=== PATIENT | female | born 1985 | race Caucasian/White ===

== ENCOUNTER 2019-07-03 21:12 | Emergency (ER) | payer SELFPAY ==
[2019-07-03 21:27] VITALS: BP 150/87; PULSE 98; RESP 16; TEMP 36.4; O2SAT 97
--- NOTE | 2019-07-03 21:49 | ED.GENADUL_ITS ---
Discharge Plan Disposition Patient Disposition: HOME Discharge Details Chief Complaint: Headache Clinical Impression: Headache Primary Care Provider: Callie Mcgovern ED Provider: Reno Rosenberg Home Meds and New Rx's Prescriptions: No Action No Known Home Meds RF: 0 Discharge Instructions Instructions: Migraine Headache (ED) Additional Instructions: Your blood work and CAT scan in the emergency department today were unremarkable. I suspect your symptoms are that of migraine at this time. It is very important to monitor your symptoms and should you develop any worsening headache, severe sudden onset symptoms, vomiting or fever he should be evaluated immediately. Start taking ibuprofen 600 mg along with Tylenol 500 mg every 8 hours. You may also try Excedrin Migraine for [id number] relief. Contact your primary care provider should your symptoms persist into the latter part of the week. Call should you have any concerns Referrals: Callie Mcgovern [Primary Care Provider] - 3 days Medical Decision Making This is a nontoxic-appearing 34-year-old female presenting to the emergency department with daily recurring left-sided headache and neck pain. No concerning features on exam. Her vitals are stable. Labs demonstrate normal CBC, chemistry panel, and sed rate . CAT scan of her head today unremarkable. Her headache is much improved status post IV fluids and Toradol 50 mg IV push. She has a photophobia characteristic with her headache. I suspect that this is most likely the onset of the new daily occurring migraine. Discussing with her home therapy it seems as though she is been underdosing her Tylenol and Motrin regimen. We discussed supportive measures going forward. We also discussed following up with her primary care provider should her headache symptoms persist despite maximum outpatient therapy. We did discuss worrisome features for emergent ER evaluation which include thunderclap headache, fevers, neck stiffness and pain, new rash or vomiting. At this time I do not suspect meningitis or subarachnoid hemorrhage based on the characteristics of her symptoms. HPI General Date/Time Provider Initiated Documentation: 07/03/19 21:22 . HPI Narrative: Patient is a 34-year-old female presenting to the emergency department with a left-sided headache x6 days. She states that she has a history for frequent headaches usually occurring 1 to 2 weeks prior to her menses. Her headache today is different than her typical headache stating that it is very focal and nonresponsive to treatment. She has some light sensitivity associated with a headache. She admits to some mild nausea. She states that her headache radiates into the left lateral aspect of her neck. She denies any neck stiffness. No fevers or chills. She denies any rashes. Headache came on gradually and has been constant. She denies any thunderclap headache. No vomiting. She is been taking Tylenol and Motrin with relief however her headache rebound roughly 4 to 6 hours afterwards. She denies any trauma. Related Data Home Medications Medication Instructions Recorded Confirmed Unknown [No Known Home Meds] 07/03/19 07/03/19 Allergies Allergy/AdvReac Type Severity Reaction Status Date / Time Penicillins Allergy Severe Hives Unverified 07/03/19 21:32 sulfamethoxazole Allergy Severe Hives Unverified 07/03/19 21:32 [From Bactrim] General Stated Complaint: Headache DONNA: 4 Review of Systems Constitutional Denies chills, Denies fatigue, Denies fever(s), Denies frequent falls, Denies headache(s), Denies lethargy and Denies weakness Eyes Denies blurry vision, Denies loss of vision and Reports photophobia ENT Denies vertigo, Denies dizziness, Denies headache(s), Denies nasal trauma, Denies neck mass, Reports neck pain and Denies nose pain Cardiovascular Denies chest pain, Denies syncope, Denies rapid heart rate, Denies edema, Denies dyspnea, Denies dyspnea on exertion and Denies orthopnea Respiratory Denies cough, Denies dyspnea, Denies dyspnea on exertion and Denies wheezing Gastrointestinal Denies abdominal pain, Denies cramping, Denies diarrhea, Reports nausea and Denies vomiting Genitourinary Denies dysuria Musculoskeletal Denies myalgias, Reports neck pain, Denies numbness and Denies tingling Integumentary/Breasts Denies rash Neurologic Denies abnormal speech, Denies confusion, Denies vertigo, Denies dizziness, Denies syncope, Denies frequent falls, Denies headache(s), Denies lack of coordination, Denies focal weakness, Denies loss of vision, Denies memory loss, Denies numbness, Denies radicular pain, Denies convulsions, Denies seizure-like activity, Denies sensory deficit, Denies tingling, Denies paresthesias and Denies weakness Psychiatric Denies confusion and Denies memory loss Endocrine Denies fatigue Allergic/Immunologic Denies wheezing [facility] Social History Smoking/Tobacco Use Status: Never Drug use: Never Substance use type: does not use Do you feel safe at home: Yes Do you feel safe in your relationship?: Yes Exam Const General: cooperative, healthy appearing, comfortable and no acute distress Orientation: alert, awake and oriented x3 HENMT Head: abnormal to inspection, skull fracture palpable, not normocephalic and signs of trauma Ears: hearing grossly normal bilaterally General nose exam: external nose normal Face and sinus: normal facial exam and sinuses nontender Mouth: oral mucosae normal Teeth and gingiva: dentition normal Throat: posterior oropharynx normal Eyes General: appearance normal, both eyes and all related structures Pupils: PERRL EOM: EOM intact bilaterally Neck Neck: normal visual inspection, full ROM, no lymphadenopathy and no meningeal signs Lymphatic: no lymphadenopathy noted Chest Chest: normal inspection of the chest Breast inspection: normal inspection of the breasts Resp Effort & Inspection: normal respiratory effort Auscultation: clear to auscultation bilaterally Cardio Rate: regular rate Rhythm: regular rhythm Heart Sounds: S1 normal and S2 normal Pulses: normal peripheral pulses GI Inspection: normal to inspection Palpation: soft Back/Spine/Pelvis Back: no CVA tenderness Thoracic/Lumbar Spine: thoracic and lumbar spine normal to inspection Skin General skin exam: no rashes or lesions noted Neuro General: alert, awake and oriented x3 Cranial Nerves: CN's II-XI intact bilaterally Cognition: normal cognition Speech: speech normal Gait: normal gait Motor: muscle tone normal throughout Sensory Exam: no sensory deficits noted Extrem General: normal to inspection Course Vital Signs Temperature 36.4 C L 07/03/19 21:27 Pulse 98 H 07/03/19 21:27 Respiratory Rate 16 07/03/19 21:27 Blood Pressure 150/87 H 07/03/19 21:27 Pulse Oximetry 97 07/03/19 21:27 Temperature 36.4 C L 07/03/19 21:27 Temperature Source Skin 07/03/19 21:27 Pulse 98 H 07/03/19 21:27 Respiratory Rate 16 07/03/19 21:27 Respiratory Effort 07/03/19 21:32 Blood Pressure 150/87 H 07/03/19 21:27 Blood Pressure Position Sitting 07/03/19 21:27 Pulse Oximetry 97 07/03/19 21:27 Oxygen Delivery Method Room Air 07/03/19 21:27 Oxygen Flow Rate 0 07/03/19 21:27 Pain Level 5 07/03/19 21:32
[2019-07-03 22:03] LABS: Abs Immature Grans 0.02 k/cumm (0.0-0.09); Absolute Basophil Count 0.05 k/cumm (0.0-0.2); Absolute Eosinophil Count 0.12 k/cumm (0.0-0.7); Absolute Lymphocyte Count 1.53 k/cumm (1.2-3.4); Absolute Monocyte Count 0.39 k/cumm (0.11-0.7); Absolute Neutrophil Count 4.45 k/cumm (1.2-6.7); Basophils % 0.8; Eosinophils % 1.8; HCT 41.3 % (36.0-46.0); HGB 14.1 g/dL (12.0-15.5); Immature Grans % 0.3; Lymphocytes % 23.3; Mean Corp. HGB Concentration 34.1 g/dL (32.0-36.0); Mean Corpuscular Hemoglobin 28.1 pg (27.0-33.0); Mean Corpuscular Volume 82.3 fL (80-95); Mean Platelet Volume 8.5 fL (8.0-11.0); Monocytes % 5.9; Neutrophils % 67.9; Platelet Count 336 x1000/uL (130-400); RBC 5.02 m/cumm (4.00-5.20); RBC Distribution Width 12.8 % (11.7-14.6); White Blood Cell Count 6.56 k/cumm (4.4-10.8)
--- NOTE | 2019-07-03 22:15 | DI.CT_ITS ---
SYMPTOM/DIAGNOSIS: RT SIDED HEADACHE NONCONTRAST HEAD CT: No intracranial hemorrhage, mass or infarct is seen. The ventricles are normal in size. The visualized portions of the orbits, sinuses and mastoid air cells are unremarkable. IMPRESSION: Negative head CT.
[2019-07-03] MEDS: Normal Saline 1,000 ML 1000 ML IV (22:25)
[2019-07-03] MEDS: Ketorolac 30 MG/ML VIAL 15 MG IVP (22:26)
[2019-07-03] MEDS: Ondansetron 4 MG/2 ML VIAL IVP (22:27)
--- NOTE | 2019-07-03 22:34 | DI.VRAD_ITS ---
EXAM: CT Head Without Contrast EXAM DATE/TIME: 07/03/2019 9:46 PM CLINICAL HISTORY: 34 years old, female; Other: Right sided headache x 6 days TECHNIQUE: Imaging protocol: Computed tomography of the head without contrast. Radiation optimization: All CT scans at this facility use at least one of these dose optimization techniques: automated exposure control; mA and/or kV adjustment per patient size (includes targeted exams where dose is matched to clinical indication); or iterative reconstruction. COMPARISON: No relevant prior studies available. FINDINGS: Brain: Typical for age. No hemorrhage. No evidence of acute infarct. No mass. Ventricles: No ventriculomegaly. Bones/joints: Unremarkable. Sinuses: No sinus fluid. Mastoid air cells: Unremarkable. Soft tissues: Unremarkable. IMPRESSION: No acute intracranial abnormality. Dictated and Authenticated by: Damian Castellon MD. Ordering:MIKHAIL Bojorquez MD
[2019-07-03 22:39] LABS: Magnesium 1.8 mg/dL (1.8-2.4)
[2019-07-03 22:46] LABS: ALT 51 U/L (14-59); AST 30 U/L (15-37); Albumin 4.2 g/dL (3.4-5.0); Alkaline Phosphatase 80 U/L (46-116); Anion Gap 8.2 mmol/L (3-11); BUN 17 mg/dL (7-18); Bilirubin, Total 0.5 mg/dL (0.2-1.0); CO2 26.8 mmol/L (21.0-32.0); CREATININE 0.73 mg/dL (0.55-1.02); Calcium 9.2 mg/dL (8.5-10.1); Chloride 102 mmol/L (98-107); Glucose 120 mg/dL (70-100); Potassium 3.9 mmol/L (3.5-5.1); Sodium 137 mmol/L (136-145); Total Protein 7.9 g/dL (6.4-8.2)
[2019-07-03 22:48] LABS: ESR 13 mm/hr (0-20)
[2019-07-03 23:11] VITALS: BP 131/81; PULSE 81; RESP 16; TEMP 36.6; O2SAT 99
== END 2019-07-03 21:50 | disposition home or self-care (01) ==
PROVIDERS: Emergency Provider Physician Assistant; PCP Nurse Practitioner
DX: G43.909 Migraine, unspecified, not intractable, without status migrainosus (principal); R11.0 Nausea; M54.2 Cervicalgia
CPT/HCPCS: 36415; 80053; 85652; 96361; 96374; 96375; 99284; 70450; 83735; 85025; J1885; J2405